=== PATIENT | female | born 1975 | race Caucasian/White ===

== ENCOUNTER → 2018-04-23 | Outpatient (CLI) | payer BC ==
[~2018-04-23] MED LIST: CHOL10002; CHOL10002 PO; CYAN1000 PO; HYDACE5; META800 PO; METR500 PO; OCTAGAM 10% VIA20 ML IV; PRED10 PO; PRED20 PO; PROBIOTIC PO; PYRI60 PO; SACC250C PO; TRAM50 PO; VANC125 PO
[2018-04-23 15:01] LABS: Adenovirus F 40/41 Not Detected (NOT DETECT); Astrovirus Not Detected (NOT DETECT); Campylobacter Sp Not Detected (NOT DETECT); Cryptosporidium Not Detected (NOT DETECT); Cyclospora Cayetanensis Not Detected (NOT DETECT); E. Coli O157 Not Detected (NOT DETECT); Entamoeba Histolytica Not Detected (NOT DETECT); Enteroaggregative E. coli-EAEC Not Detected (NOT DETECT); Enteropathogenic E. coli-EPEC Not Detected (NOT DETECT); Enterotoxigenic E. coli-ETEC Not Detected (NOT DETECT); Giardia Lamblia Not Detected (NOT DETECT); Norovirus GI/GII Not Detected (NOT DETECT); Plesiomonas Shigelloides Not Detected (NOT DETECT); Rotavirus A Not Detected (NOT DETECT); Salmonella Sp Not Detected (NOT DETECT); Sapovirus Not Detected (NOT DETECT); Shiga Toxin-prod E. coli-STEC Not Detected (NOT DETECT); Shigella/Enteroin E. coli-EIEC Not Detected (NOT DETECT); Vibrio Cholerae Not Detected (NOT DETECT); Vibrio Sp Not Detected (NOT DETECT); Yersinia Enterocolitica Not Detected (NOT DETECT)
== END ==
LOC: OLS 14:30 → LAB SHORT 14:30
PROVIDERS: Family Medicine
DX: R19.7 Diarrhea, unspecified (principal)
CPT/HCPCS: 87507

== ENCOUNTER → 2020-01-19 | Outpatient (CLI) | payer BC ==
[2020-01-19 19:06] LABS: Influenza A Negative (NEGATIVE); Influenza B Negative (NEGATIVE)
== END | disposition home or self-care (01) ==
LOC: LAB SHORT 16:07 → LAB 16:07
PROVIDERS: Physician Assistant
DX: R05 Cough (principal)
CPT/HCPCS: 87804

== ENCOUNTER → 2022-12-31 | Outpatient (CLI) | payer BC ==
[~2022-12-31] MED LIST changes: +AZAT50 PO; +CEPH500 PO
[2022-12-31 16:48] LABS: Influenza A, PCR NEGATIVE (NEGATIVE); Influenza B, PCR NEGATIVE (NEGATIVE); Resp Syncytial Virus, PCR NEGATIVE (NEGATIVE); SARS-Cov-2 (COVID-19) PCR, MMC NEGATIVE (NEGATIVE)
== END | disposition home or self-care (01) ==
LOC: LAB SHORT 15:22
PROVIDERS: Family Medicine
DX: R05.9 Cough, unspecified (principal); R50.9 Fever, unspecified
CPT/HCPCS: 0241U

== ENCOUNTER → 2023-05-29 | Outpatient (CLI) | payer OTHER ==
[2023-05-29 19:11] LABS: Adenovirus F 40/41 Not Detected (NOT DETECT); Astrovirus Not Detected (NOT DETECT); Campylobacter Sp Not Detected (NOT DETECT); Cryptosporidium Not Detected (NOT DETECT); Cyclospora Cayetanensis Not Detected (NOT DETECT); E. Coli O157 Not Detected (NOT DETECT); Entamoeba Histolytica Not Detected (NOT DETECT); Enteroaggregative E. coli-EAEC Not Detected (NOT DETECT); Enteropathogenic E. coli-EPEC Not Detected (NOT DETECT); Enterotoxigenic E. coli-ETEC Not Detected (NOT DETECT); Giardia Lamblia Not Detected (NOT DETECT); Norovirus GI/GII Not Detected (NOT DETECT); Plesiomonas Shigelloides Not Detected (NOT DETECT); Rotavirus A Not Detected (NOT DETECT); Salmonella Sp Not Detected (NOT DETECT); Sapovirus Not Detected (NOT DETECT); Shiga Toxin-prod E. coli-STEC Not Detected (NOT DETECT); Shigella/Enteroin E. coli-EIEC Not Detected (NOT DETECT); Vibrio Cholerae Not Detected (NOT DETECT); Vibrio Sp Not Detected (NOT DETECT); Yersinia Enterocolitica Not Detected (NOT DETECT)
== END | disposition home or self-care (01) ==
LOC: LAB 10:30 → LAB SHORT 10:30
PROVIDERS: Family Medicine
DX: R19.7 Diarrhea, unspecified (principal); R79.9 Abnormal finding of blood chemistry, unspecified
CPT/HCPCS: 87507

== ENCOUNTER 2023-08-28 01:51 | Day surgery (SDC) | payer OTHER ==
[2023-08-28 08:35] VITALS: BP 127/73
[2023-08-28] MEDS ORDERED: CALCIUM 500 MG1 EAC2 PO (10:05)
[2023-08-28] MEDS ORDERED: ALBU90OI INH (10:06)
[2023-08-28] MEDS ORDERED: Ventolin5 MG/1 ML INH (10:06)
[2023-08-28] MEDS ORDERED: DICLOFENAC SODI50 GM TP (10:07)
[2023-08-28] MEDS ORDERED: FLUT1DIS2 INH (10:07)
[2023-08-28] MEDS ORDERED: GUAI200 PO (11:04)
[2023-08-28] MEDS ORDERED: CODEINE-GUAIFE120 M1 PO (11:04)
[2023-08-28] MEDS ORDERED: SERT100 PO (11:05)
[2023-08-28] MEDS ORDERED: COLESTID1 G1 PO (11:05)
== END 2023-08-28 08:47 | disposition home or self-care (01) ==
LOC: ATC 01:51
DX: G70.00 Myasthenia gravis without (acute) exacerbation (principal); Z79.52 Long term (current) use of systemic steroids
CPT/HCPCS: 96523; J1642

== ENCOUNTER 2023-10-09 05:57 | Day surgery (SDC) | payer OTHER ==
[~2023-10-09 05:57] MED LIST changes: +ALBU90OI INH; +CALCIUM 500 MG1 EAC2 PO; +CODEINE-GUAIFE120 M1 PO; +COLESTID1 G1 PO; +DICLOFENAC SODI50 GM TP; +FLUT1DIS2 INH; +GUAI200 PO; +SERT100 PO; +Ventolin5 MG/1 ML INH
[2023-10-09 09:42] VITALS: BP 127/81
== END 2023-10-09 09:28 | disposition home or self-care (01) ==
LOC: ATC 05:57
DX: G70.00 Myasthenia gravis without (acute) exacerbation (principal)
CPT/HCPCS: 96523; J1642

== ENCOUNTER 2023-11-15 03:04 | Day surgery (SDC) | payer OTHER ==
[2023-11-15 08:20] VITALS: BP 125/83
== END 2023-11-15 08:21 | disposition home or self-care (01) ==
LOC: ATC 03:04
DX: G70.00 Myasthenia gravis without (acute) exacerbation (principal)
CPT/HCPCS: 96523; J1642

== ENCOUNTER → 2024-06-15 | Outpatient (CLI) | payer OTHER ==
[2024-06-15 22:30] LABS: Influenza A, PCR NEGATIVE (NEGATIVE); Influenza B, PCR NEGATIVE (NEGATIVE); Resp Syncytial Virus, PCR NEGATIVE (NEGATIVE)
[2024-06-15 23:12] LABS: SARS-Cov-2 (COVID-19) PCR, MMC POSITIVE (NEGATIVE)
== END | disposition home or self-care (01) ==
LOC: LAB SHORT 18:25 → LAB 18:25
PROVIDERS: Registered Nurse
DX: R50.9 Fever, unspecified (principal); R05.9 Cough, unspecified
CPT/HCPCS: 0241U

== ENCOUNTER 2024-08-16 16:40 | Observation (INO) | payer BC ==
[~2024-08-16] VITALS: Ht 170.2 cm; Wt 137.0 kg
[~2024-08-16 16:40] MED LIST changes: +B-121000 MC3 PO; -CYAN1000 PO
[2024-08-16] MEDS ORDERED: Dexamethasone Sod Phos 10 MG/ML 1ML VIAL IV ONE (17:25)
[2024-08-16] MEDS ORDERED: Methocarbamol 500 MG Tab PO ONE (17:25)
[2024-08-16] MEDS ORDERED: Ondansetron HCl 2 MG / ML 2ML Vial IV ONE (17:25)
[2024-08-16] MEDS ORDERED: HYDROmorphone HCl/Pf 1MG SYR IV ONE ×2 (17:25→18:40)
[2024-08-16] MEDS ORDERED: Metoclopramide HCl 5MG / ML 2ML Vial IV PRN (21:15)
[2024-08-16] MEDS ORDERED: FLU VACC TS2024-25(6MOS UP)/PF 45 MCG/0.5 ML SYRINGE IM SCH (21:15)
[2024-08-16] MEDS ORDERED: Lactated Ringer's 1,000 ML IV SCH (21:15)
[2024-08-16] MEDS ORDERED: Acetaminophen 500 MG Tab PO PRN (21:20)
[2024-08-16] MEDS ORDERED: Albuterol 2.5 MG/3 ML VIAL INH PRN (21:20)
[2024-08-16] MEDS ORDERED: OxyCODONE HCL 5 MG TAB PO PRN (21:20)
[2024-08-16] MEDS ORDERED: Ondansetron HCl 2 MG / ML 2ML Vial IV PRN (21:20)
[2024-08-16] MEDS ORDERED: FentaNYL Citrate 50 MCG/ML 2 ML Injection IV PRN (21:25)
[2024-08-16] MEDS ORDERED: Mometasone/Formoterol MDI 200/5 mcg 13 GM INH SCH (21:30)
[2024-08-16 21:35] LABS: Hematocrit 42.4 % (33.0-51.0); Mean Corpuscular HGB 29.8 pg (26.0-34.0); Mean Corpuscular Volume 90 fL (80-100); Mean Platelet Volume 9.3 fL (9.1-12.4); Platelet Count 238 K/mm3 (150-400); RDW Standard Deviation 42.9 fL (35.1-46.3); White Blood Cell Count 10.04 K/mm3 (4.00-11.30)
[2024-08-16 21:51] LABS: Bun/Creatinine Ratio 14.2 (12.0-20.0); Calcium, Blood 9.8 mg/dL (8.5-10.1); Creatinine, Blood 0.77 mg/dL (0.40-1.00); Potassium, Blood 4.2 mmol/L (3.5-5.5)
[2024-08-16] MEDS ORDERED: Ketorolac Tromethamine 15mg Vial IV ONE (22:00)
[2024-08-16] MEDS ORDERED: Sennosides 8.6 MG Tab PO SCH (22:00)
[2024-08-16 22:25] VITALS: BP 126/73
[2024-08-17 05:03] VITALS: BP 106/61
[2024-08-17] MEDS ORDERED: Omeprazole 20 MG CapCR PO SCH (06:00)
--- NOTE | 2024-08-17 06:03 | NUR ---
SHIFT SUMMARY NOC ADMIT FROM ED WITH CHRONIC BACK PAIN AND WEKANESS DUE TO MYESTHENIA GRAVIS. PT EXTREMELY PAINFUL IN LOWER LUBAR AND BLE. PT HAS SEVERE DDD L5-S4. PAIN BEING MANAGED PER EMAR. PT REPORTS THAT THE PAIN DECREASES WHEN LAYING ON RIGHT SIDE. PT ON BEDREST DUE TO PAIN. PUREWICK IN PLACE BECAUSE IT IS TOO PAINFUL FOR THEM TO USE BEDPAN. PT IS ON O2 2L/NC WHICH IS WITHIN THEIR BASELINE OF 2-5L/NC, PT HAS HX OF ASTHMA AND RAQUEL AND USING CPAP FOR SLEEPING AND ON CONTINOUS PULSE OXIMETRY. ON TELE SINUS RHYTHM IN 70'S. SPOUSE IS BEDSIDE IN RECLINER. LR INFUSING @ 150 ML/HR X 2 BAGS. PT CURRENTLY RESTING WITH BED IN LOWEST POSITION, AND CALL LIGHT WITHIN REACH.
[2024-08-17 07:42] VITALS: BP 132/74
[2024-08-17] MEDS ORDERED: Ibuprofen 600 MG Tab PO PRN (08:10)
[2024-08-17] MEDS ORDERED: OxyCODONE HCL 5 MG TAB PO PRN (08:15)
[2024-08-17] MEDS ORDERED: Docusate Sodium 100 MG Cap PO SCH (09:00)
[2024-08-17] MEDS ORDERED: AzaTHIOprine 50 MG Tab PO SCH (09:00)
[2024-08-17] MEDS ORDERED: PredniSONE 10 MG Tab PO SCH (09:00)
[2024-08-17] MEDS ORDERED: Pyridostigmine Bromide 60 MG Tab PO SCH (09:00)
[2024-08-17] MEDS ORDERED: PredniSONE 20 MG Tab PO SCH (09:00)
[2024-08-17] MEDS ORDERED: Enoxaparin 40 MG/0.4 ML SYR SC SCH (09:00)
[2024-08-17] MEDS ORDERED: Gabapentin 100 MG Cap PO SCH (14:00)
[2024-08-17 15:59] VITALS: BP 133/77
--- NOTE | 2024-08-17 18:28 | NUR ---
SHIFT SUMMARY PT A&OX4. PT ADMITTED DUE TO BACK PAIN. PT REPORTS PAIN DOWN HER LEFT BACK/SIDE/LEG. PT REPORTS CHRONIC NUMBNESS WHEN SITTING. PT REPORTS HX OF MYESTHESIA GRAVIS, PT HAS CHRONIC NUMBNESS ON LEFT SIDE. PT HAD PERWICK IN PLACE DUE TO SEVERE PAIN. PERWICK CURRENTLY NOT IN PLACE DUE TO PT REPORTING PAIN BEING MORE MANAGED PER REST/EMAR/POSITION. PT TOOK SHOWER TODAY, AND PLAN WAS TO GET MRI, MRI GOT CANCELLED DUE TO SIZE RESTRICTIONS. PT ON TELE, AND HAS CONT PULSE OX. PT SPO2 IS 96%. PT ON 2L N/C. PT USES 2-5L AT BASELINE AT HOME. CALLS APPROPRIATELY, AND CALL LIGHT IN REACH. FAMILY AT BEDSIDE DURING SHIFT.
[2024-08-17 19:53] VITALS: BP 124/82
[2024-08-18 03:00] VITALS: BP 107/57
--- NOTE | 2024-08-18 05:10 | NUR ---
SHIFT SUMMARY: Pt is admitted for back pain and is a full code. Is alert and able to make needs known ADLs have been SBA. stated that she has pain that is currently manageable for a level and will let the LN know if she needs anything. Telly reports sinus in the 80s.
[2024-08-18 07:44] VITALS: BP 134/87
[2024-08-18] MEDS ORDERED: ACET500 PO (11:44)
[2024-08-18] MEDS ORDERED: IBUP600 PO (11:45)
[2024-08-18] MEDS ORDERED: DOCU100 PO (11:45)
[2024-08-18] MEDS ORDERED: GABA100 PO (11:45)
[2024-08-18] MEDS ORDERED: OMEP20ER PO (11:46)
[2024-08-18] MEDS ORDERED: SENN187 PO (11:47)
[2024-08-18] MEDS ORDERED: OXYC5 PO (11:47)
--- NOTE | 2024-08-18 12:57 | NUR ---
VSS, A-Ox4, denies SOB, states 7 out of 10 pain that was well managed with prn tylenol, ambulates with SB assist, on 2L NC home setting. Lungs dimished, heart regular, NS on tele, bowel sounds normative, skin intact. Pt D/C at 1257, D/C intructions given, safety ensured.
== END 2024-08-18 12:55 | disposition home or self-care (01) ==
LOC: ER 16:40 → MEDS 16:41
PROVIDERS: Nurse Practitioner Acute Care; ADMIT Internal Medicine
DX: M51.17 Intervertebral disc disorders with radiculopathy, lumbosacral region (principal); G89.29 Other chronic pain; G70.00 Myasthenia gravis without (acute) exacerbation; E78.5 Hyperlipidemia, unspecified; K21.9 Gastro-esophageal reflux disease without esophagitis; J45.909 Unspecified asthma, uncomplicated; M81.0 Age-related osteoporosis without current pathological fracture; G47.33 Obstructive sleep apnea (adult) (pediatric); E66.01 Morbid (severe) obesity due to excess calories; Z68.41 Body mass index [BMI] 40.0-44.9, adult; Z79.52 Long term (current) use of systemic steroids; Z79.899 Other long term (current) drug therapy; Z88.1 Allergy status to other antibiotic agents; Z88.3 Allergy status to other anti-infective agents; Z90.710 Acquired absence of both cervix and uterus; Z90.49 Acquired absence of other specified parts of digestive tract
CPT/HCPCS: 72100; 73562-LT; 80048; 85027; 94640; 94660; 94664; 94762; 96372; 96374; 96375; 96376; 97110; 97162; 97530; 99284-25; A9270; G0378; J1100; J1170; J1650; J1885; J2405; J7120; J7500; J7512

== ENCOUNTER → 2025-02-13 | Outpatient (CLI) | payer BC ==
[~2025-02-13] MED LIST changes: +ACET500 PO; +DOCU100 PO; +GABA100 PO; +IBUP600 PO; +OMEP20ER PO; +OXYC5 PO; +SENN187 PO
[2025-02-13 14:39] LABS: Appearance, Urine Hazy (Clear); Bilirubin, Urine Neg (Neg); Blood, Urine 1+ (Neg); Color, Urine Yellow (P-Yellow); Glucose Qualitative, Urine Neg (Neg); Ketones, Urine Neg (Neg); Leukocyte Esterase, Urine 3+ (Neg); Nitrite, Urine Pos (Neg); Protein, Urine 1+ (Neg); Urobilinogen, Urine NORM (Normal)
[2025-02-13 14:47] LABS: Bacteria Many /hpf; Hyaline Casts 0-2 /lpf (0-2); Mucus Mod (0-Heavy); Squamous Epithelial Cells Mod /hpf (Few); White Blood Cells, Urine 25-50 /hpf (0-5)
[2025-02-13 14:48] LABS: Transitional Epithelial Cells Rare /hpf (0-Rare)
== END ==
LOC: LAB 11:15 → LAB SHORT 11:15
PROVIDERS: Nurse Practitioner Family
DX: N39.0 Urinary tract infection, site not specified (principal)
CPT/HCPCS: 81001; 87077; 87086; 87186

== ENCOUNTER 2025-03-10 00:54 | Day surgery (SDC) | payer BC ==
[2025-03-10 15:35] VITALS: BP 144/79
== END 2025-03-10 15:47 | disposition home or self-care (01) ==
LOC: ATC 00:54
DX: G70.00 Myasthenia gravis without (acute) exacerbation (principal); J45.909 Unspecified asthma, uncomplicated; G47.30 Sleep apnea, unspecified; Z79.899 Other long term (current) drug therapy; Z88.1 Allergy status to other antibiotic agents
CPT/HCPCS: 96523; J1642

== ENCOUNTER 2025-07-28 03:30 | Day surgery (SDC) | payer BC ==
[2025-07-28 15:43] VITALS: BP 148/94
== END 2025-07-28 15:50 | disposition home or self-care (01) ==
LOC: ATC 03:30
DX: G70.00 Myasthenia gravis without (acute) exacerbation (principal); M85.80 Other specified disorders of bone density and structure, unspecified site; J45.909 Unspecified asthma, uncomplicated; G47.30 Sleep apnea, unspecified; Z79.52 Long term (current) use of systemic steroids; Z79.624 Long term (current) use of inhibitors of nucleotide synthesis; Z79.899 Other long term (current) drug therapy; Z88.1 Allergy status to other antibiotic agents
CPT/HCPCS: 96523; J1642

== ENCOUNTER 2025-08-27 07:44 | Day surgery (SDC) | payer BC ==
[2025-08-27 10:46] VITALS: BP 158/87
[2025-08-27] MEDS ORDERED: LISI20 PO (11:59)
== END 2025-08-27 10:52 | disposition home or self-care (01) ==
LOC: ATC 07:44
DX: Z45.2 Encounter for adjustment and management of vascular access device (principal); G70.00 Myasthenia gravis without (acute) exacerbation; G47.30 Sleep apnea, unspecified; Z90.49 Acquired absence of other specified parts of digestive tract
CPT/HCPCS: 96523; J1642

== ENCOUNTER 2025-09-24 01:15 | Day surgery (SDC) | payer BC ==
[~2025-09-24 01:15] MED LIST changes: +LISI20 PO
[2025-09-24 11:50] VITALS: BP 153/81
== END 2025-09-24 12:00 | disposition home or self-care (01) ==
LOC: ATC 01:15
DX: G70.00 Myasthenia gravis without (acute) exacerbation (principal); J45.909 Unspecified asthma, uncomplicated; Z88.8 Allergy status to other drugs, medicaments and biological substances
CPT/HCPCS: 96523; J1642

== ENCOUNTER 2025-10-22 01:17 | Day surgery (SDC) | payer BC ==
[2025-10-22 12:15] VITALS: BP 144/74
== END 2025-10-22 12:20 | disposition home or self-care (01) ==
LOC: ATC 01:17
DX: G70.00 Myasthenia gravis without (acute) exacerbation (principal); Z88.1 Allergy status to other antibiotic agents; Z88.8 Allergy status to other drugs, medicaments and biological substances
CPT/HCPCS: 96523; J1642